=== PATIENT | female | born 1990 | race Caucasian/White ===

== ENCOUNTER 2020-11-29 13:11 | Emergency (ER) | payer SELFPAY ==
[2020-11-29] MEDS ORDERED: Lidocaine 1% 20 ML MDV ONE (14:26)
[2020-11-29] MEDS ORDERED: Silver Nitrate Application 1 EACH ONE (14:27)
[2020-11-29] MEDS ORDERED: Triple Antibiotic Oint 1 GM Packet ONE (15:24)
[2020-11-29] MEDS ORDERED: Boostrix 0.5 ML (Tdap) VIAL ONE (15:24)
--- NOTE | 2020-11-29 15:47 | RAD ---
EXAM: XR Finger(s) Rt Min 2 View PROVIDED CLINICAL HISTORY: Pain FINDINGS: There is no evidence for fracture or other acute osseous abnormality. Alignment appears anatomic. Gracia nt spaces appear preserved. There is soft tissue deficiency at the radial aspect of the index digit distally, with overlying bandaging material limiting assessment for associated foreign body. IMPRESSION: No evidence for an acute osseous abnormality. If there is persistent clinical concern, conservative m anagement and follow-up imaging advised.
[2020-11-29] MEDS ORDERED: Amoxicillin/Potassium Clav 875 MG TAB ONE (16:04)
[2020-11-29] MEDS ORDERED: HYDROcodone/Acetaminophen 10/325 mg Tablet ONE (16:04)
== END 2020-11-29 16:13 | disposition home or self-care (01) ==
LOC: MADERS 13:11
DX: S61.300A Unspecified open wound of right index finger with damage to nail, initial encounter (principal); E03.9 Hypothyroidism, unspecified; Z79.899 Other long term (current) drug therapy; W26.9XXA Contact with unspecified sharp object(s), initial encounter
CPT/HCPCS: 12042; 26770; 90471; 90715